=== PATIENT | male | born 1950 | race Caucasian/White ===

== ENCOUNTER → 2017-01-08 | Outpatient (CLI) | payer MEDICARE, OTHER ==
[~2017-01-08] MED LIST: REGADENOSON 0.4 MG/5 ML SYRINGE ONE
== END | disposition home or self-care (01) ==
LOC: CFH 06:52
PROVIDERS: ATTEND Family Medicine
DX: I25.9 Chronic ischemic heart disease, unspecified (principal); I71.4 Abdominal aortic aneurysm, without rupture; Z72.0 Tobacco use
CPT/HCPCS: 78452; 93017; 93978; A9502; J2785

== ENCOUNTER → 2017-01-16 | Outpatient (CLI) | payer MEDICARE ==
[~2017-01-16] MED LIST changes: +ASPI-496 PO; +ATOR40TA78 PO; +ISOS30TA21 PO; +METO25TA35 PO; +NITR0.4T28 SL; -REGADENOSON 0.4 MG/5 ML SYRINGE ONE
== END | disposition home or self-care (01) ==
LOC: CFH 13:07
PROVIDERS: ATTEND Internal Medicine Cardiovascular Disease
DX: I08.0 Rheumatic disorders of both mitral and aortic valves (principal); I10 Essential (primary) hypertension
CPT/HCPCS: 93306

== ENCOUNTER 2017-02-09 09:09 | Inpatient (IN) | payer MEDICARE, OTHER ==
[~2017-02-09] VITALS: Ht 160 cm; Wt 66.0 kg
[2017-02-09] MEDS: SODIUM CHLORIDE 0.9% 1,000 ML IV SCH ×5 (09:12→21:36)
[2017-02-09] MEDS ORDERED: BISACODYL 5 MG EC TABLET PO PRN ×2 (09:30→15:00)
[2017-02-09] MEDS ORDERED: BISACODYL 10 MG SUPP PR PRN ×2 (09:30→15:00)
[2017-02-09] MEDS ORDERED: ASPIRIN 325 MG TABLET EC PO ONE (09:30)
[2017-02-09] MEDS ORDERED: ONDANSETRON 2MG/ML, 2ML IVPush PRN ×2 (09:30→15:00)
[2017-02-09] MEDS ORDERED: ACETAMINOPHEN 325 MG TABLET PO PRN ×2 (09:30→15:00)
[2017-02-09] MEDS ORDERED: ZOLPIDEM 5MG TABLET PO PRN ×2 (09:30→15:00)
[2017-02-09] MEDS ORDERED: ASPIRIN 325 MG TABLET EC ONE (09:51)
[2017-02-09] MEDS ORDERED: FENTANYL PF 100 MCG/2ML ONE ×3 (09:59→14:18)
[2017-02-09] MEDS ORDERED: TICAGRELOR 90 MG TABLET ONE (09:59)
[2017-02-09] MEDS ORDERED: MIDAZOLAM 1 MG/ML, 5ML ONE ×2 (09:59→12:47)
[2017-02-09] MEDS ORDERED: NITROGLYCERIN 5 MG/ML, 10ML ONE ×2 (10:00→12:47)
[2017-02-09] MEDS ORDERED: HEPARIN 1,000 UNITS/ML, 10ML ONE ×2 (10:00→12:48)
[2017-02-09] MEDS ORDERED: VERAPAMIL 2.5 MG/ML, 2ML ONE ×2 (10:00→12:47)
[2017-02-09] MEDS ORDERED: BIVALIRUDIN 250 MG ONE ×3 (10:00→14:18)
[2017-02-09] MEDS ORDERED: LIDOCAINE 2%, 20ML ONE ×2 (10:00→12:48)
[2017-02-09] MEDS: PLEASE ENTER HEIGHT AND WEIGHT MC SCH ×2 (10:30→17:03)
[2017-02-09] MEDS ORDERED: PRASUGREL 10 MG TABLET ONE (12:50)
[2017-02-09] MEDS ORDERED: BIVALIRUDIN 250 MG in DEXTROSE 5% 50 ML IV SCH (14:48)
[2017-02-09] MEDS ORDERED: NITROGLYCERIN 0.4 MG BOTTLE (25 TABS) SL SCH (15:00)
[2017-02-09 19:44] VITALS: BP 118/78
[2017-02-09] MEDS: ATORVASTATIN 40 MG TABLET PO SCH (21:34)
[2017-02-10 01:21] VITALS: BP 123/79
[2017-02-10] MEDS: PLEASE ENTER HEIGHT AND WEIGHT MC SCH ×2 (02:30→09:37)
[2017-02-10 05:02] LABS: HEMATOCRIT 37.5 % (39.2-51.8); HEMOGLOBIN 12.9 g/dL (13.7-18.0)
[2017-02-10 05:03] LABS: BLOOD UREA NITROGEN 8 mg/dL (7-18)
[2017-02-10] MEDS: SODIUM CHLORIDE 0.9% 1,000 ML IV SCH ×2 (05:12→06:48)
[2017-02-10] MEDS ORDERED: METOPROLOL SUCCINATE 25 MG TAB.ER.24H PO SCH (06:00)
[2017-02-10 06:55] VITALS: BP 148/90
[2017-02-10] MEDS ORDERED: METOPROLOL TARTRATE 25 MG TABLET PO SCH (09:00)
[2017-02-10] MEDS: ASPIRIN 81 MG TABLET EC PO SCH (09:36)
[2017-02-10] MEDS: PRASUGREL 10 MG TABLET PO SCH (09:36)
[2017-02-10] MEDS: ISOSORBIDE DINITRATE 30 MG TABLET PO SCH (09:36)
[2017-02-10] MEDS ORDERED: METOPROLOL SUCCINATE 25 MG TAB.ER.24H PO ONE (10:30)
[2017-02-10 13:26] VITALS: BP 98/64
[2017-02-10 20:28] VITALS: BP 104/65
[2017-02-10] MEDS: ATORVASTATIN 40 MG TABLET PO SCH (20:31)
[2017-02-11] VITALS (10 sets, daily range): BP systolic 91–126; BP diastolic 53–87
[2017-02-11] MEDS: METOPROLOL SUCCINATE 50 MG TAB.ER.24H PO SCH (06:07)
[2017-02-11] MEDS ORDERED: PRAS10TA4 PO (07:52)
[2017-02-11] MEDS: ASPIRIN 81 MG TABLET EC PO SCH (09:26)
[2017-02-11] MEDS: ISOSORBIDE DINITRATE 30 MG TABLET PO SCH (09:27)
[2017-02-11] MEDS: PRASUGREL 10 MG TABLET PO SCH (09:27)
[2017-02-11] MEDS: SODIUM CHLORIDE 0.9% 500 ML IV SCH ×4 (11:54→17:30)
[2017-02-11] MEDS: ATORVASTATIN 40 MG TABLET PO SCH (21:02)
[2017-02-12 02:14] VITALS: BP 124/79
[2017-02-12] MEDS: METOPROLOL SUCCINATE 50 MG TAB.ER.24H PO SCH (06:11)
[2017-02-12 09:13] VITALS: BP 111/74
[2017-02-12] MEDS: ISOSORBIDE DINITRATE 30 MG TABLET PO SCH (09:30)
[2017-02-12] MEDS: PRASUGREL 10 MG TABLET PO SCH (09:30)
[2017-02-12] MEDS: ASPIRIN 81 MG TABLET EC PO SCH (09:30)
[2017-02-12 13:16] VITALS: BP 94/67
== END 2017-02-12 16:00 | disposition home or self-care (01) | DRG 247 ==
LOC: CACL 09:09 → 5SO 14:48 → CACL 14:55
PROVIDERS: ADMIT Internal Medicine Cardiovascular Disease; ATTEND Internal Medicine Cardiovascular Disease
PROC: 4A023N7 Measurement of Cardiac Sampling and Pressure, Left Heart, Percutaneous Approach (ICD-10-PCS; principal; 2017-02-09)
PROC: 027034Z Dilation of Coronary Artery, One Artery with Drug-eluting Intraluminal Device, Percutaneous Approach (ICD-10-PCS; 2017-02-09)
PROC: B2111ZZ Fluoroscopy of Multiple Coronary Arteries using Low Osmolar Contrast (ICD-10-PCS; 2017-02-09)
PROC: B2151ZZ Fluoroscopy of Left Heart using Low Osmolar Contrast (ICD-10-PCS; 2017-02-09)
DX: I25.110 Atherosclerotic heart disease of native coronary artery with unstable angina pectoris (principal); I95.9 Hypotension, unspecified; E88.09 Other disorders of plasma-protein metabolism, not elsewhere classified; I25.82 Chronic total occlusion of coronary artery; D64.9 Anemia, unspecified; E78.5 Hyperlipidemia, unspecified; I10 Essential (primary) hypertension; F17.210 Nicotine dependence, cigarettes, uncomplicated; Z90.49 Acquired absence of other specified parts of digestive tract
CPT/HCPCS: 36415; 80048; 82040; 84443; 84481; 85014; 85018; 92978; 93005; 93458; 99156; 99157; C1753; C1760; C1769; C1894; C9600; J0583; J1644; J2250; J3010; J3490; C1725; C1874; C1887; J7030; J7040; Q9967

== ENCOUNTER → 2018-02-08 | Outpatient (CLI) | payer MEDICARE ==
[~2018-02-08] MED LIST changes: +LEVO50TA5 PO; +PRAS10TA4 PO
== END | disposition home or self-care (01) ==
LOC: CFH 08:47
PROVIDERS: ATTEND Family Medicine
DX: M41.84 Other forms of scoliosis, thoracic region (principal)
CPT/HCPCS: 72072

== ENCOUNTER 2018-03-08 19:18 | Emergency (ER) | payer MEDICARE, OTHER ==
[~2018-03-08] VITALS: Ht 160 cm; Wt 64.4 kg
[2018-03-08 19:47] VITALS: BP 119/75
[2018-03-08] MEDS ORDERED: ACETAMINOPHEN 325 MG TABLET PO ONE (21:00)
[2018-03-08] MEDS ORDERED: ACETAMINOPHEN 325 MG TABLET ONE (21:48)
== END 2018-03-08 22:21 | disposition home or self-care (01) ==
LOC: ED 21:07
DX: S16.1XXA Strain of muscle, fascia and tendon at neck level, initial encounter (principal); I10 Essential (primary) hypertension; I11.9 Hypertensive heart disease without heart failure; E78.00 Pure hypercholesterolemia, unspecified; F17.200 Nicotine dependence, unspecified, uncomplicated; V89.2XXA Person injured in unspecified motor-vehicle accident, traffic, initial encounter; Y93.89 Activity, other specified; Y99.8 Other external cause status; Y92.488 Other paved roadways as the place of occurrence of the external cause
CPT/HCPCS: 72050; 72072; 99284